=== PATIENT | female | born 1960 | race Caucasian/White ===

== ENCOUNTER 2023-09-13 14:19 | Emergency (ER) | payer BC, SELFPAY ==
[2023-09-13 14:30] VITALS: BP 159/99
[2023-09-13 17:34] VITALS: BMI 33.3
[2023-09-13 17:35] VITALS: BP 152/91
[2023-09-13] MEDS: TORADOL 30 MG IM (17:40)
--- NOTE | 2023-09-13 17:52 | ED.GENMED ---
History of Present Illness
General
Chief Complaint: Musculo-Skeletal Complaint
Source: patient and spouse
Exam Limitations: none
Time Seen by Provider: 09/13/23 16:31
Nursing documentation reviewed up to this point in time: agreed with
History of Present Illness
History of Present Illness:
62-year-old female with no chronic medical issues presents to the emergency room for evaluation of right knee pain. Patient reports that over the August weekend she was very busy and active and started to have some pain in the lateral right
knee although she denies any specific injury. She says that she thought it was a minor sprain and so she was managing it with Tylenol and rest and her symptoms generally improved until last night when she stepped in a divot in her lawn and twisted
the right knee once again and had return of lateral right knee pain this time somewhat worse than previous. Today she says she was walking around the city including climbing up stairs and felt that her pain was quite severe and so she came to the
emergency room for assessment. She denies any other injuries or complaints.
Review of Systems
Review of Systems
All Other Systems: ROS reviewed and negative except as documented in HPI and ROS
Musculoskeletal: Reports joint pain
Phy Exam
Physical Exam
Physical Exam:
General: Well appearing and non-toxic
HEENT: protecting airway
Neck: appears supple
CV: No evidence of cyanosis
Resp: No accessory muscle use
Abd: Non-distended
Extremities: No deformities; on exam of the right knee she has a very minor joint effusion; she has no pain with manipulation of patella; she has no medial joint line tenderness, very mild lateral joint line tenderness; she has limited active range
of motion on flexion due to pain but I am able to passively flex the knee to 90 degrees and fully extend; she has no laxity on varus or valgus strain; negative anterior and posterior drawer sign; she has a good strong distal pulse in the right lower
extremity specifically a strong right DP and PT pulse and she has no edema in the right lower extremity; left lower extremity normal
Neuro: Alert
Psych: Normal affect
Skin: Intact
Scores
Heart Failure Risk
Heart Failure Risk Score: Not Applicable
Heart Score for Chest Pain Patients
STEMI patient?: Not applicable
Withdrawal Assessment of Alcohol
Withdrawal Assessment Completed?: Not applicable
Course
Orders/Labs/Results
Orders:
Orders
09/13/23 14:32
CR Knee- Right 4 Or More View* Urgent
Comment:
Reason For Exam: pain/injury
09/13/23 17:07
Crutches-Treatment ONCE
Knee Immobilizer Right-Treatme ONCE
Ketorolac [Toradol] 30 mg IM NOW STA
Vital Signs
Initial and Last Documented VS:
Initial Vital Signs
Temp Pulse Resp BP Pulse Ox
36.8 C 98 20 159/99 94
09/13/23 14:30 09/13/23 14:30 09/13/23 14:30 09/13/23 14:30 09/13/23 14:30
Last Documented Vital Signs
Temp Pulse Resp BP Pulse Ox
36.8 C 79 14 152/91 96
09/13/23 14:30 09/13/23 17:35 09/13/23 17:35 09/13/23 17:35 09/13/23 17:35
MDM/Problems Addressed
Differential Diagnosis Includes:
Knee sprain/internal derangement (ligamentous injury, meniscus injury, etc), fracture, dislocation
MDM/Problems Addressed:
62-year-old female presents for evaluation of right knee pain as above. Mildly hypertensive otherwise normal vitals. Physical exam as above. X-ray shows osteoarthritis but no fracture or dislocation. Suspect likely minor knee sprain; patient has
been weightbearing. Placed in knee brace, crutches as needed, referred to Ortho for outpatient follow-up.
Acute Exacerbation and/or Progression of Chronic Illness:
Acutely hypertensive
Acute Exacerbation and/or Progression of Chronic Illness: HTN
*Radiology
Radiology exam reviewed: radiology read reviewed
*Pulse Oximetry
Patient hypoxic: no
*Critical Care Note
Total Time (30-74mins, 75-104mins- exclusive of procedures): Not Applicable
Data Reviewed
Source: patient and spouse
ED Attending Note
-
Portions of this chart may have been created with voice recognition software.� Occasional wrong word or��sound alike� substitutions may have occurred due to the inherent limitations of voice recognition software.
Discharge Plan
Departure
Patient Disposition: Home (Routine Discharge)
Date of Disposition: 09/13/23
Time of Disposition: 17:09
Patient with high blood pressure during this ER visit?: No
Discharge Problem:
Right knee sprain
Instructions: Knee Sprain ED
Referrals:
Trino Benitez MD [Active] - Call in 1-3 days for appt (Orthopedist)
Myron Jaeger MD [Family Provider] -
Activity Restrictions/Additional Instructions:
Thank you for visiting the Emergency Department at [facility].
1. Please schedule a follow up appointment as directed. Call first thing tomorrow morning to make an appointment.
2. If indicated, please take your medications as instructed and indicated on discharge paperwork.
3. If any of your symptoms do not improve, or persist, or become more severe within 6-12 hours, please return to the emergency department for further care.
4. Please return to the emergency department if you develop a headache, neck pain/stiffness, fever greater than 100.4F, chest pain, shortness of breath, persistent nausea, vomiting, slurred speech, difficulty walking, numbness/tingling, weakness,
signs of infection or any other symptoms that are worrisome to you.
Please call [phone] if you have any questions.
Interventions
Interventions:
*Risk Screen - Suicide Last Done: 09/13/23 14:30
*General Assessment Last Done: 09/13/23 14:30
*Neglect/Abuse Screening Last Done: 09/13/23 14:30
ED- Fall Risk Assessment Last Done: 09/13/23 17:35
*ED COVID-19 Vaccine History Last Done: 09/13/23 17:35
ED-Musculoskeletal Assessment Last Done: 09/13/23 17:38
Discharge Date and Time
Print Language: [id number]
[2023-09-13 18:07] VITALS: BP 167/99
== END 2023-09-13 18:11 | disposition home or self-care (01) ==
LOC: EMR 14:19
PROVIDERS: EMERGENCY PHYSICIAN Emergency Medicine; FAMILY PHYSICIAN Family Medicine
DX: S83.91XA Sprain of unspecified site of right knee, initial encounter (principal); X50.1XXA Overexertion from prolonged static or awkward postures, initial encounter; Y93.01 Activity, walking, marching and hiking; Y92.007 Garden or yard of unspecified non-institutional (private) residence as the place of occurrence of the external cause
CPT/HCPCS: 99284; 29505; 96372; 73564